=== PATIENT | male | born 1960 | race Caucasian/White ===

== ENCOUNTER 2023-05-07 12:21 | Inpatient (IN) | payer OTHER ==
[2023-05-07 13:09] LABS: Basophils % (A) 0 %; Eosinophils # (A) 0.2 k/uL (0-0.7); Eosinophils % (A) 1 %; HCT 39.4 % (39.0-53.0); HGB 13.3 gm/dL (13.0-17.5); Lymphocytes # (A) 2.2 k/uL (1.0-4.8); Lymphocytes % (A) 17 %; MCH 31.4 pg (25.0-35.0); MCHC 33.7 g/dL (31.0-37.0); MCV 93.1 fL (80.0-100.0); Mean Platelet Volume 6.8; Monocytes # (A) 0.8 k/uL (0-1.0); Monocytes % (A) 6 %; Neutrophils # (A) 9.5 k/uL (1.3-7.7); Neutrophils % (A) 74 %; Platelet Count 287 k/uL (150-450); RBC 4.23 m/uL (4.30-5.90); RDW 12.5 % (11.5-15.5); WBC 12.9 k/uL (3.8-10.6)
[2023-05-07 13:20] LABS: INR 1.1 (<1.2); Prothrombin Time 11.9 sec (10.0-12.5)
--- NOTE | 2023-05-07 13:25 | ED ---
Recheck HPI - General Chief Complaint: Chest Pain Stated Complaint: Chest pain Time Seen by Provider: 05/07/23 12:31 Source: EMS, RN notes reviewed, old records reviewed Mode of arrival: EMS Limitations: no limitations - History of Present Illness Initial Comments: This is a 62-year-old male to the ER for evaluation of chest pain today. Patient does have chest pain here in the emergency department persistent chest pain with abnormal elevated troponin and an outpatient facility. Patient is brought to our ER with again active chest pain transferred to our emergency department for non-ST elevated TX on heparin. MD Complaint: abnormal lab (Elevated troponin) Returns Today for: Called Because of Abnormal Lab/Test (Elevated troponin), persistent/worsening pain related to initial visit Context: called for abnormal lab result Associated Symptoms: none - Related Data Home Medications Medication Instructions Recorded Confirmed Aspirin EC [Ecotrin Low Dose] 81 mg PO DAILY 05/07/23 05/07/23 Atorvastatin Calcium [Lipitor] 40 mg PO DAILY 05/07/23 05/07/23 Ferrous Sulfate [Feosol] 325 mg PO DAILY 05/07/23 05/07/23 Levothyroxine Sodium [Synthroid] 137 mcg PO DAILY 05/07/23 05/07/23 Loratadine 10 mg PO DAILY 05/07/23 05/07/23 Metoprolol Succinate [Metoprolol 25 mg PO DAILY 05/07/23 05/07/23 Succinate ER] Nitroglycerin Sl Tabs [Nitrostat] 0.4 mg SUBLINGUAL Q5M PRN 05/07/23 05/07/23 lisinopriL [Zestril] 5 mg PO DAILY 05/07/23 05/07/23 Allergies Allergy/AdvReac Type Severity Reaction Status Date / Time lidocaine Allergy Anaphylaxis Verified 05/07/23 14:35 warfarin Allergy Unknown Verified 05/07/23 14:35 latex AdvReac Itching Verified 05/07/23 14:35 naproxen AdvReac Nausea & Verified 05/07/23 14:35 Vomiting Review of Systems ROS Statement: Those systems with pertinent positive or pertinent negative responses have been documented in the HPI. ROS Other: All systems not noted in ROS Statement are negative. Past Medical History Past Medical History: Coronary Artery Disease (CAD), Chest Pain / Angina, Heart Failure, COPD, Hyperlipidemia, Hypertension, Myocardial Infarction (TX) Additional Past Medical History / Comment(s): chronic sinuses History of Any Multi-Drug Resistant Organisms: None Reported Past Surgical History: Heart Catheterization, Heart Catheterization With Stent Additional Past Surgical History / Comment(s): dental surgery, total sinus surgery, Past Psychological History: Depression, Schizophrenia Smoking Status: Current every day smoker Past Alcohol Use History: Occasional Past Drug Use History: Marijuana, Methamphetamine - Past Family History Mother Family Medical History: Cancer Father Family Medical History: Cancer General Exam Limitations: no limitations General appearance: alert, in no apparent distress, anxious Head exam: Present: atraumatic, normocephalic, normal inspection Eye exam: Present: normal appearance, PERRL, EOMI. Absent: scleral icterus, conjunctival injection, periorbital swelling ENT exam: Present: normal exam, mucous membranes moist Neck exam: Present: normal inspection. Absent: tenderness, meningismus, lymphadenopathy Respiratory exam: Present: normal lung sounds bilaterally. Absent: respiratory distress, wheezes, rales, rhonchi, stridor Cardiovascular Exam: Present: regular rate, normal rhythm, normal heart sounds. Absent: systolic murmur, diastolic murmur, rubs, gallop, clicks GI/Abdominal exam: Present: soft, normal bowel sounds. Absent: distended, tenderness, guarding, rebound, rigid Extremities exam: Present: normal inspection, full ROM, normal capillary refill. Absent: tenderness, pedal edema, joint swelling, calf tenderness Back exam: Present: normal inspection Neurological exam: Present: alert, oriented X3, CN II-XII intact Psychiatric exam: Present: normal affect, normal mood Skin exam: Present: warm, dry, intact, normal color. Absent: rash Course Vital Signs 05/07/23 05/07/23 05/07/23 12:30 16:54 19:00 Temperature 98.7 F Pulse Rate 89 72 71 Respiratory 20 22 20 Rate Blood Pressure 150/96 135/89 129/78 O2 Sat by Pulse 96 98 100 Oximetry 05/07/23 05/07/23 21:00 22:00 Temperature Pulse Rate 70 71 Respiratory 16 19 Rate Blood Pressure 124/76 127/79 O2 Sat by Pulse 95 96 Oximetry - Reevaluation(s) Reevaluation #1: 05/07/23 20:40 Medical records reviewed Reevaluation #2: 05/07/23 20:40 Patient is still with chest pain here in the ER as well as headache Reevaluation #3: 05/07/23 20:40 Patient informed of results and questions answered Reevaluation #4: Was pt. sent in by a medical professional or institution (DEDE Aragon, ASSISTANT IMPORT MANAGER, urgent care, hospital, or half-way...) When possible be specific @ -Yes patient was sent from [facility] Did you speak to anyone other than the patient for history (EMS, parent, family, police, friend...)? What history was obtained from this source @ -no Did you review nursing and triage notes (agree or disagree)? Why? @ -agree Are old charts reviewed (outside hosp., previous admission, EMS record, old EKG, old radiological studies, urgent care reports/EKG's, half-way records)? Report findings @ -yes Differential Diagnosis (chest pain, altered mental status, abdominal pain women, abdominal pain men, vaginal bleeding, weakness, fever, dyspnea, syncope, headache, dizziness, GI bleed, back pain, seizure, CVA, palpatations, mental health, musculoskeletal)? @ -prior EKG interpreted by me (3pts min.). @ -yes X-rays interpreted by me (1pt min.). @ -n0 CT interpreted by me (1pt min.). @ -no U/S interpreted by me (1pt. min.). @ -no What testing was considered but not performed or refused? (CT, X-rays, U/S, labs)? Why? @ -none What meds were considered but not given or refused? Why? @ -none Did you discuss the management of the patient with other professionals (professionals i.e. DEDE Aragon, ASSISTANT IMPORT MANAGER, lab, RT, psych nurse, addiction social worker, machine shorthand teacher, teacher, public relations officer, pillowcase maker)? Give summary @ -no Was smoking cessation discussed for >3mins.? @ -no Was critical care preformed (if so, how long)? @ -yes31 Were there social determinants of health that impacted care today? How? (Homelessness, low income, unemployed, alcoholism, drug addiction, transportation, low edu. Level, literacy, decrease access to med. care, correction, rehab)? @ -none Was there de-escalation of care discussed even if they declined (Discuss DNR or withdrawal of care, Hospice)? DNR status @ -no What co-morbidities impacted this encounter? (DM, HTN, Smoking, COPD, CAD, Cancer, CVA, ARF, Chemo, Hep., AIDS, mental health diagnosis, sleep apnea, morbid obesity)? @ -none Was patient admitted / discharged? Hospital course, mention meds given and route, prescriptions, significant lab abnormalities, going to OR and other perti ne info. @ - 62 male to be admitted for chest pain and chest pain observation secondary to elevated troponin indicative of a non-ST elevated TX, patient was transferred and accepted to [place] in transfer from outside facility, [facility] Admitted Undiagnosed new problem with uncertain prognosis? @ -no Drug Therapy requiring intensive monitoring for toxicity (Heparin, Nitro, Insulin, Cardizem)? @ -no Were any procedures done? @ -no Diagnosis/symptom? @ -Non-ST elevated TX, elevated troponin Acute, or Chronic, or Acute on Chronic? @ -Acute Uncomplicated (without systemic symptoms) or Complicated (systemic symptoms)? @ -Complicated Side effects of treatment? @ -no Exacerbation, Progression, or Severe Exacerbation? @ -exacerbation Poses a threat to life or bodily function? How? (Chest pain, USA, TX, pneumonia, PE, COPD, DKA, ARF, appy, cholecystitis, CVA, Diverticulitis, Homicidal, Suicidal, threat to staff... and all critical care pts) @ -yes Reevaluation #5: Differential Chest Pain: Stable Angina, Unstable Angina, STEMI, NSTEMI Aortic Dissection, Pneumothorax, Musculoskeletal, Esophageal Spasm GERD, Cholecystitis, Pancreatitis, Zoster, this is not meant to be an all-inclusive list. - Consultations Consultation #1: Spoke with admitting physicians who agreed to admit this patient Medical Decision Making - Medical Decision Making 62 male to be admitted for chest pain and chest pain observation secondary to elevated troponin indicative of a non-ST elevated TX, patient was transferred and accepted to [place] in transfer from outside facility, [facility] - Lab Data Result diagrams: 05/08/23 07:08 05/08/23 07:08 Lab Results 05/07/23 05/07/23 05/07/23 Range/Units 13:00 13:00 13:00 WBC 12.9 H (3.8-10.6) k/uL RBC 4.23 L (4.30-5.90) m/uL Hgb 13.3 (13.0-17.5) gm/dL Hct 39.4 (39.0-53.0) % MCV 93.1 (80.0-100.0) fL MCH 31.4 (25.0-35.0) pg MCHC 33.7 (31.0-37.0) g/dL RDW 12.5 (11.5-15.5) % Plt Count 287 (150-450) k/uL MPV 6.8 Neutrophils % 74 % Lymphocytes % 17 % Monocytes % 6 % Eosinophils % 1 % Basophils % 0 % Neutrophils # 9.5 H (1.3-7.7) k/uL Lymphocytes # 2.2 (1.0-4.8) k/uL Monocytes # 0.8 (0-1.0) k/uL Eosinophils # 0.2 (0-0.7) k/uL Basophils # 0.0 (0-0.2) k/uL PT 11.9 (10.0-12.5) sec INR 1.1 (<1.2) APTT 49.0 H (22.0-30.0) sec Sodium 134 L (137-145) mmol/L Potassium 3.9 (3.5-5.1) mmol/L Chloride 105 (98-107) mmol/L Carbon Dioxide 19 L (22-30) mmol/L Anion Gap 10 mmol/L BUN 14 (9-20) mg/dL Creatinine 0.69 (0.66-1.25) mg/dL Est GFR (CKD-EPI)AfAm >90 (>60 ml/min/1.73 sqM) Est GFR (CKD-EPI)NonAf >90 (>60 ml/min/1.73 sqM) Glucose 92 (74-99) mg/dL Calcium 9.3 (8.4-10.2) mg/dL Magnesium 2.0 (1.6-2.3) mg/dL Total Bilirubin 1.1 (0.2-1.3) mg/dL AST 50 (17-59) U/L ALT 19 (4-49) U/L Alkaline Phosphatase 110 (38-126) U/L Troponin I (0.000-0.034) ng/mL NT-Pro-B Natriuret Pep 2670 pg/mL Total Protein 8.0 (6.3-8.2) g/dL Albumin 4.6 (3.5-5.0) g/dL Lipase 120 (23-300) U/L 05/07/23 Range/Units 13:00 WBC (3.8-10.6) k/uL RBC (4.30-5.90) m/uL Hgb (13.0-17.5) gm/dL Hct (39.0-53.0) % MCV (80.0-100.0) fL MCH (25.0-35.0) pg MCHC (31.0-37.0) g/dL RDW (11.5-15.5) % Plt Count (150-450) k/uL MPV Neutrophils % % Lymphocytes % % Monocytes % % Eosinophils % % Basophils % % Neutrophils # (1.3-7.7) k/uL Lymphocytes # (1.0-4.8) k/uL Monocytes # (0-1.0) k/uL Eosinophils # (0-0.7) k/uL Basophils # (0-0.2) k/uL PT (10.0-12.5) sec INR (<1.2) APTT (22.0-30.0) sec Sodium (137-145) mmol/L Potassium (3.5-5.1) mmol/L Chloride (98-107) mmol/L Carbon Dioxide (22-30) mmol/L Anion Gap mmol/L BUN (9-20) mg/dL Creatinine (0.66-1.25) mg/dL Est GFR (CKD-EPI)AfAm (>60 ml/min/1.73 sqM) Est GFR (CKD-EPI)NonAf (>60 ml/min/1.73 sqM) Glucose (74-99) mg/dL Calcium (8.4-10.2) mg/dL Magnesium (1.6-2.3) mg/dL Total Bilirubin (0.2-1.3) mg/dL AST (17-59) U/L ALT (4-49) U/L Alkaline Phosphatase (38-126) U/L Troponin I 0.339 H* (0.000-0.034) ng/mL NT-Pro-B Natriuret Pep pg/mL Total Protein (6.3-8.2) g/dL Albumin (3.5-5.0) g/dL Lipase (23-300) U/L - EKG Data -: EKG Interpreted by Me (EKG is SVT 88 QRS 114 QTc 482) Critical Care Time Critical Care Time: Yes Total Critical Care Time: 31 Disposition Clinical Impression: Acute non-ST elevation myocardial infarction (NSTEMI), Chest pain Disposition: ADMITTED IP TO THIS [facility] Condition: Serious Is patient prescribed a controlled substance at d/c from ED?: No Time of Disposition: 16:00
[2023-05-07 13:57] LABS: ALT 19 U/L (4-49); AST 50 U/L (17-59); African American GFR (CKD) >90 (>60 ml/min/1.73 sqM); Albumin 4.6 g/dL (3.5-5.0); Alkaline Phosphatase 110 U/L (38-126); Anion Gap 10 mmol/L; Blood Urea Nitrogen 14 mg/dL (9-20); Calcium 9.3 mg/dL (8.4-10.2); Carbon Dioxide 19 mmol/L (22-30); Chloride 105 mmol/L (98-107); Glucose 92 mg/dL (74-99); Lipase 120 U/L (23-300); Non-African American GFR(CKD) >90 (>60 ml/min/1.73 sqM); Potassium 3.9 mmol/L (3.5-5.1); Sodium 134 mmol/L (137-145); Total Bilirubin 1.1 mg/dL (0.2-1.3)
[2023-05-07 14:06] LABS: NT-Pro-B-Type Natriuretic Pept 2670 pg/mL
[2023-05-07] MEDS ORDERED: NITROGLYCERIN SL TABS 0.4 MG TAB SUBLINGUAL PRN (16:00)
[2023-05-07] MEDS: KETOROLAC 15 MG/ML 1 ML VIAL IVP STA (16:55)
[2023-05-07] MEDS: ACETAMINOPHEN IV (For NPO) 1,000 MG in EMPTY BAG 1 BAG IVPB STA (16:57)
[2023-05-07] MEDS: HEPARIN SOD,PORK IN 0.45% NACL 25,000 UNIT in 0.45% NACL 1 250ML.BAG IV SCH (16:59)
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
[2023-05-07] MEDS ORDERED: NITROGLYCERIN OINT 1 INCH/GM PACKET TOPICAL PRN (19:27)
[2023-05-07] MEDS: METOPROLOL SUCCINATE (ER) 25 MG TAB.ER.24H PO STA (19:38)
[2023-05-07] MEDS: ATORVASTATIN 40 MG TAB PO STA (19:38)
[2023-05-07] MEDS ORDERED: METOPROLOL TARTRATE 25 MG TAB PO SCH (21:00)
[2023-05-07] MEDS: ACETAMINOPHEN TAB 325 MG TAB PO PRN (23:20)
[2023-05-08] MEDS: HEPARIN SODIUM 1,000 UN/ML (10ML VL) IV PRN (00:11)
[2023-05-08] MEDS: LEVOTHYROXINE 137 MCG TAB PO SCH (06:00)
[2023-05-08 07:21] LABS: Basophils % (A) 1 %; Eosinophils # (A) 0.4 k/uL (0-0.7); Eosinophils % (A) 5 %; HCT 39.5 % (39.0-53.0); HGB 13.1 gm/dL (13.0-17.5); Lymphocytes # (A) 2.2 k/uL (1.0-4.8); Lymphocytes % (A) 26 %; MCH 31.5 pg (25.0-35.0); MCHC 33.1 g/dL (31.0-37.0); MCV 95.2 fL (80.0-100.0); Mean Platelet Volume 6.8; Monocytes # (A) 0.5 k/uL (0-1.0); Monocytes % (A) 5 %; Neutrophils # (A) 5.3 k/uL (1.3-7.7); Neutrophils % (A) 62 %; Platelet Count 254 k/uL (150-450); RBC 4.15 m/uL (4.30-5.90); RDW 12.5 % (11.5-15.5); WBC 8.5 k/uL (3.8-10.6)
[2023-05-08 07:47] LABS: African American GFR (CKD) >90 (>60 ml/min/1.73 sqM); Anion Gap 6 mmol/L; Blood Urea Nitrogen 18 mg/dL (9-20); Calcium 8.6 mg/dL (8.4-10.2); Carbon Dioxide 21 mmol/L (22-30); Chloride 105 mmol/L (98-107); Glucose 89 mg/dL (74-99); Non-African American GFR(CKD) >90 (>60 ml/min/1.73 sqM); Potassium 3.7 mmol/L (3.5-5.1); Sodium 132 mmol/L (137-145)
[2023-05-08] MEDS: lisinopriL 5 MG TAB PO SCH (08:27)
[2023-05-08] MEDS: FERROUS SULFATE 325 MG TAB PO SCH (08:27)
[2023-05-08] MEDS: METOPROLOL SUCCINATE (ER) 50 MG TAB.ER.24H PO SCH (08:27)
[2023-05-08] MEDS: LORATADINE 10 MG TAB PO SCH (08:27)
[2023-05-08] MEDS: ASPIRIN 81 MG PO SCH (08:27)
[2023-05-08] MEDS: ATORVASTATIN 80 MG TAB PO SCH (08:27)
[2023-05-08 08:48] LABS: T4, Free (Free Thyroxine) 1.14 ng/dL (0.78-2.19)
[2023-05-08 09:00] VITALS: BP 133/74; PULSE 64; RESP 16; TEMP 98.5
[2023-05-08] MEDS ORDERED: ATORVASTATIN 40 MG TAB PO SCH (09:00)
[2023-05-08] MEDS ORDERED: METOPROLOL SUCCINATE (ER) 25 MG TAB.ER.24H PO SCH (09:00)
[2023-05-08] MEDS ORDERED: ASPIRIN 325 MG TAB PO SCH (09:00)
--- NOTE | 2023-05-08 10:51 | P.DS ---
Providers Date of admission: 05/07/23 16:02 Expected date of discharge: 05/08/23 Attending physician: Franklin Ferrell MD Consults: 05/07/23 16:00 Consult Physician Urgent Consulting Provider: Mayda Patino Consult Reason/Comments: nstemi Do you want consulting provider notified?: Yes Primary care physician: Stated None Hospital Course: Patient left AMA without being seen this morning. Cardiology attempted to go see the patient however, patient refused. Patient Condition at Discharge: Undetermined Plan - Discharge Summary Discharge Rx Participant: No New Discharge Prescriptions: No Action lisinopriL [Zestril] 5 mg PO DAILY Metoprolol Succinate [Metoprolol Succinate ER] 25 mg PO DAILY Levothyroxine Sodium [Synthroid] 137 mcg PO DAILY Atorvastatin Calcium [Lipitor] 40 mg PO DAILY Ferrous Sulfate [Feosol] 325 mg PO DAILY Aspirin EC [Ecotrin Low Dose] 81 mg PO DAILY Nitroglycerin Sl Tabs [Nitrostat] 0.4 mg SUBLINGUAL Q5M PRN PRN Reason: Chest Pain Loratadine 10 mg PO DAILY Discharge Medication List Aspirin EC [Ecotrin Low Dose] 81 mg PO DAILY 05/07/23 [History] Atorvastatin Calcium [Lipitor] 40 mg PO DAILY 05/07/23 [History] Ferrous Sulfate [Feosol] 325 mg PO DAILY 05/07/23 [History] Levothyroxine Sodium [Synthroid] 137 mcg PO DAILY 05/07/23 [History] Loratadine 10 mg PO DAILY 05/07/23 [History] Metoprolol Succinate [Metoprolol Succinate ER] 25 mg PO DAILY 05/07/23 [History] Nitroglycerin Sl Tabs [Nitrostat] 0.4 mg SUBLINGUAL Q5M PRN 05/07/23 [History] lisinopriL [Zestril] 5 mg PO DAILY 05/07/23 [History] Follow up Appointment(s)/Referral(s): Nonstaff,Physician [REFERRING] - 1-2 days Discharge Disposition: LEFT AGAINST MEDICAL ADVICE
--- NOTE | 2023-05-08 11:45 | P.CRDCN ---
History of Present Illness History of present illness: Dr. Beltran attempted to evaluate patient this morning. Patient uncooperative. Patient continued to yell at Dr. Beltran stating "I am so fucking pissed" and "my is so pissed at everyone here cause she doesn't know where I am". Dr. Beltran attempted to discuss patients symptoms for coming to the hospital and his current condition. Patient again refused to speak with Dr. Beltran. Dr. Beltran as ked patient at least 3 times if he would like to be seen by Dr. Beltran and the patient continued to state "No, I am leaving". Patient left AMA. Nurse practitioner note has been reviewed by physician. Signing provider agrees with the documented findings, assessment, and plan of care documented by [employer] as a scribe. Past Medical History Past Medical History: Coronary Artery Disease (CAD), Chest Pain / Angina, Heart Failure, COPD, Hyperlipidemia, Hypertension, Myocardial Infarction ([place]) Additional Past Medical History / Comment(s): chronic sinuses Last Myocardial Infarction Date:: 04/30/22 History of Any Multi-Drug Resistant Organisms: None Reported Past Surgical History: Heart Catheterization, Heart Catheterization With Stent Additional Past Surgical History / Comment(s): dental surgery, total sinus surgery, Past Anesthesia/Blood Transfusion Reactions: No Reported Reaction Date of Last Stent Placement:: 04/30/22 Past Psychological History: Depression, Schizophrenia Smoking Status: Current every day smoker Past Alcohol Use History: Occasional Past Drug Use History: Marijuana, Methamphetamine - Past Family History Mother Family Medical History: Cancer Father Family Medical History: Cancer Medications and Allergies Home Medications Medication Instructions Recorded Confirmed Type Aspirin EC [Ecotrin Low Dose] 81 mg PO DAILY 05/07/23 05/07/23 History Atorvastatin Calcium [Lipitor] 40 mg PO DAILY 05/07/23 05/07/23 History Ferrous Sulfate [Feosol] 325 mg PO DAILY 05/07/23 05/07/23 History Levothyroxine Sodium [Synthroid] 137 mcg PO DAILY 05/07/23 05/07/23 History Loratadine 10 mg PO DAILY 05/07/23 05/07/23 History Metoprolol Succinate [Metoprolol 25 mg PO DAILY 05/07/23 05/07/23 History Succinate ER] Nitroglycerin Sl Tabs [Nitrostat] 0.4 mg SUBLINGUAL Q5M PRN 05/07/23 05/07/23 History lisinopriL [Zestril] 5 mg PO DAILY 05/07/23 05/07/23 History Allergies Allergy/AdvReac Type Severity Reaction Status Date / Time lidocaine Allergy Anaphylaxis Verified 05/07/23 14:35 warfarin Allergy Unknown Verified 05/07/23 14:35 latex AdvReac Itching Verified 05/07/23 14:35 naproxen AdvReac Nausea & Verified 05/07/23 14:35 Vomiting Physical Exam Vitals: Vital Signs Temp Pulse Pulse Resp BP BP Pulse Ox 05/08/23 03:25 98.7 F 77 18 124/72 97 05/08/23 00:39 98.4 F 59 L 18 121/65 98 05/08/23 00:15 58 L 16 133/82 97 05/07/23 22:00 71 19 127/79 96 05/07/23 21:00 70 16 124/76 95 05/07/23 19:00 71 20 129/78 100 05/07/23 16:54 72 22 135/89 98 05/07/23 12:30 98.7 F 89 20 150/96 96 Intake and Output 05/07/23 05/08/23 05/08/23 22:59 06:59 14:59 Intake Total 71.826 98.481 Balance 71.826 98.481 Intake: Intake, IV Titration 71.826 98.481 Amount Heparin Sod,Pork in 0.45% 71.826 98.481 NaCl 25,000 unit In 0.45 % NaCl 1 250ml.bag @ 11. 19 UNITS/KG/HR 9.999 mls/ hr IV .Q24H [facility] Rx#: [id number] Other: # Voids 1 Weight 89.358 kg Results 05/08/23 07:08 05/08/23 07:08 Cardiac Enzymes 05/07/23 05/07/23 05/07/23 Range/Units 13:00 13:00 17:08 AST 50 (17-59) U/L Troponin I 0.339 H* 0.449 H* (0.000-0.034) ng/mL 05/07/23 Range/Units 20:40 AST (17-59) U/L Troponin I 0.449 H* (0.000-0.034) ng/mL Coagulation 05/07/23 05/07/23 05/08/23 Range/Units 13:00 23:07 07:08 PT 11.9 (10.0-12.5) sec APTT 49.0 H 32.9 H 72.0 H (22.0-30.0) sec CBC 05/07/23 05/08/23 Range/Units 13:00 07:08 WBC 12.9 H 8.5 (3.8-10.6) k/uL RBC 4.23 L 4.15 L (4.30-5.90) m/uL Hgb 13.3 13.1 (13.0-17.5) gm/dL Hct 39.4 39.5 (39.0-53.0) % Plt Count 287 254 (150-450) k/uL Comprehensive Metabolic Panel 05/07/23 05/08/23 Range/Units 13:00 07:08 Sodium 134 L 132 L (137-145) mmol/L Potassium 3.9 3.7 (3.5-5.1) mmol/L Chloride 105 105 (98-107) mmol/L Carbon Dioxide 19 L 21 L (22-30) mmol/L BUN 14 18 (9-20) mg/dL Creatinine 0.69 0.80 (0.66-1.25) mg/dL Glucose 92 89 (74-99) mg/dL Calcium 9.3 8.6 (8.4-10.2) mg/dL AST 50 (17-59) U/L ALT 19 (4-49) U/L Alkaline Phosphatase 110 (38-126) U/L Total Protein 8.0 (6.3-8.2) g/dL Albumin 4.6 (3.5-5.0) g/dL Current Medications Generic Name Dose Route Start Last Admin Trade Name Freq PRN Reason Stop Dose Admin Acetaminophen 650 mg 05/07/23 23:16 05/07/23 23:20 Acetaminophen Tab 325 Mg Tab PO 650 mg Q6HR PRN Administration Fever and/ or Pain Aspirin 81 mg 05/08/23 09:00 Aspirin 81 Mg PO DAILY [facility] Atorvastatin Calcium 80 mg 05/08/23 09:00 Atorvastatin 80 Mg Tab PO DAILY [facility] Ferrous Sulfate 325 mg 05/08/23 09:00 Ferrous Sulfate 325 Mg Tab PO DAILY [facility] Heparin Sodium (Porcine) 0 unit 05/08/23 00:06 05/08/23 00:11 Heparin Sodium 1,000 Un/Ml (10ml Vl) IV 4,450 unit Q6HR PRN Administration Low PTT Protocol Heparin Sodium/Sodium Chloride 250 mls @ 9.999 mls/hr 05/07/23 16:00 05/08/23 07:56 25,000 unit/ Sodium Chloride IV 14.19 units/kg/hr .Q24H [facility] 12.68 mls/hr Titration Protocol 11.19 UNITS/KG/HR Levothyroxine Sodium 137 mcg 05/08/23 06:30 05/08/23 06:00 Levothyroxine 137 Mcg Tab PO Not Given DAILY@0630 [facility] Lisinopril 5 mg 05/08/23 09:00 Lisinopril 5 Mg Tab PO DAILY [facility] Loratadine 10 mg 05/08/23 09:00 Loratadine 10 Mg Tab PO DAILY [facility] Metoprolol Succinate 50 mg 05/08/23 09:00 Metoprolol Succinate (Er) 50 Mg Tab.Er.24h PO DAILY [facility] Nitroglycerin 0.4 mg 05/07/23 16:00 Nitroglycerin Sl Tabs 0.4 Mg Tab SUBLINGUAL Q5M PRN Chest Pain Nitroglycerin 0.5 inch 05/07/23 19:27 Nitroglycerin Oint 1 Inch/Gm Packet TOPICAL Q6HR PRN Chest Pain Intake and Output 05/07/23 05/08/23 05/08/23 22:59 06:59 14:59 Intake Total 71.826 98.481 Balance 71.826 98.481 Intake: Intake, IV Titration 71.826 98.481 Amount Heparin Sod,Pork in 0.45% 71.826 98.481 NaCl 25,000 unit In 0.45 % NaCl 1 250ml.bag @ 11. 19 UNITS/KG/HR 9.999 mls/ hr IV .Q24H [facility] Rx#: [id number] Other: # Voids 1 Weight 89.358 kg 05/08/23 07:08 05/08/23 07:08
[2023-05-08 17:05] LABS: Chol/HDL Ratio 3.78 Ratio; LDL Cholesterol,Calculated 100.9 mg/dL (0.0-131.0)
== END 2023-05-08 09:42 | disposition left against medical advice (07) | DRG 190 ==
LOC: EC 12:21 → 3SCARD 16:02
PROVIDERS: ADMIT Internal Medicine; ATTEND Internal Medicine
DX: I21.4 Non-ST elevation (NSTEMI) myocardial infarction (principal); I25.10 Atherosclerotic heart disease of native coronary artery without angina pectoris; I11.0 Hypertensive heart disease with heart failure; I50.22 Chronic systolic (congestive) heart failure; J44.9 Chronic obstructive pulmonary disease, unspecified; E03.9 Hypothyroidism, unspecified; F20.9 Schizophrenia, unspecified; F32.A Depression, unspecified; Z28.310 Unvaccinated for COVID-19; F41.9 Anxiety disorder, unspecified; E78.5 Hyperlipidemia, unspecified; D72.829 Elevated white blood cell count, unspecified; I25.2 Old myocardial infarction; F17.210 Nicotine dependence, cigarettes, uncomplicated; Z71.6 Tobacco abuse counseling; Z53.29 Procedure and treatment not carried out because of patient's decision for other reasons; Z79.82 Long term (current) use of aspirin; Z79.890 Hormone replacement therapy; Z79.899 Other long term (current) drug therapy; Z95.5 Presence of coronary angioplasty implant and graft; Z88.8 Allergy status to other drugs, medicaments and biological substances; Z88.6 Allergy status to analgesic agent; Z88.4 Allergy status to anesthetic agent; Z91.040 Latex allergy status
CPT/HCPCS: 36415; 80048; 80053; 80061; 83036; 83690; 83735; 83880; 84439; 84443; 84484; 85025; 85610; 85730; 93005; 96365; 96366; 96368; 96375; 99291